=== PATIENT | female | born 1975 | race Caucasian/White ===

== ENCOUNTER 2018-12-18 23:45 | Emergency (ER) | payer MEDICAID ==
[2018-12-19 00:19] LABS: APPEARANCE,URINE Clear (CLEAR); BILIRUBIN,URINE Negative (NEGATIVE); COLOR,URINE Yellow (YELLOW); GLUCOSE, URINE (UA) Negative (NEGATIVE); HCG,QUAL RESULT NEGATIVE (NEGATIVE); KETONES,URINE Negative (NEGATIVE); LEUKOCYTE ESTERASE ,URINE Negative (NEGATIVE); NITRATE,URINE Negative (NEGATIVE); OCCULT BLOOD,URINE Moderate (NEGATIVE); PH,URINE 5.5 (5.0-8.0); PROTEIN,URINE Negative (NEGATIVE); UROBILINOGEN,URINE 0.2 mg/dL (0.2-1.0)
[2018-12-19] MEDS ORDERED: CLINDAMYCIN HCL 150 MG CAP ONE (00:22)
== END 2018-12-19 00:33 | disposition home or self-care (01) ==
LOC: EDH 23:45
DX: L03.314 Cellulitis of groin (principal); Z80.0 Family history of malignant neoplasm of digestive organs; Z88.1 Allergy status to other antibiotic agents
CPT/HCPCS: 81003; 81025

== ENCOUNTER 2018-12-21 23:26 | Emergency (ER) | payer MEDICAID | END 2018-12-22 00:07 | disposition home or self-care (01) | LOC: EDH 23:26 | DX: L02.214 Cutaneous abscess of groin (principal); Z88.0 Allergy status to penicillin | CPT/HCPCS: 99281 ==